=== PATIENT | male | born 2000 | race Caucasian/White ===

== ENCOUNTER 2021-05-17 06:40 | Emergency (ER) | payer SELFPAY ==
[~2021-05-17] VITALS: Ht 167.6 cm; Wt 104.3 kg
[2021-05-17 06:42] VITALS: BP 138/93
[2021-05-17] MEDS ORDERED: IBUP-2213 PO (07:19)
--- NOTE | 2021-05-17 07:29 | NUR ---
NO NURSING INTERVENTIONS PROVIDED. PT SEEN AND D/C BY DR OCONNOR
--- NOTE | 2021-05-17 07:30 | NUR ---
PATIENT BIB SERGEI RODRÍGUEZ. PATIENT EXAMINED BY DR. OCONNOR. PATIENT MEDICALLY CLEARED AND RELEASED IN CUSTODY IN STABLE CONDITION. ORIGINAL PRE-BOOK FORM GIVEN TO OFFICER LEANDER.
== END 2021-05-17 07:30 ==
LOC: MED 06:40
DX: R07.89 Other chest pain (principal); F17.200 Nicotine dependence, unspecified, uncomplicated; Z00.00 Encounter for general adult medical examination without abnormal findings; Z79.899 Other long term (current) drug therapy; V40.5XXA Car driver injured in collision with pedestrian or animal in traffic accident, initial encounter; Y93.89 Activity, other specified; Y92.411 Interstate highway as the place of occurrence of the external cause; Y99.8 Other external cause status
CPT/HCPCS: 71045; 99283